=== PATIENT | female | born 1965 | race Caucasian/White ===

== ENCOUNTER 2018-07-27 22:28 | Inpatient (IN) | payer MEDICARE, OTHER ==
[2018-07-28] MEDS ORDERED: ONDANSETRON 4 MG INJ IV
[2018-07-28] MEDS ORDERED: NACL 0.9% 3 ML SYG IV
[2018-07-28] MEDS ORDERED: GLUCOSE GEL 15 GRAM TUBE BUCCAL (00:30)
[2018-07-28] MEDS ORDERED: GLUCAGON 1 MG INJ IM (00:30)
[2018-07-28] MEDS ORDERED: GLUCOSE GEL 15 GRAM TUBE PO ×2 (00:30)
[2018-07-28] MEDS ORDERED: DEXTROSE 50% 50 ML SYRINGE IV ×2 (00:30)
[2018-07-28] MEDS: ACETAMINOPHEN 325 MG TAB PO (01:08)
[2018-07-28] MEDS: SOD CHLORIDE 0.9% 1,000 ML IV ×3 (01:08→19:41)
[2018-07-28] MEDS: ACCU-CHEK XX (02:00)
[2018-07-28] MEDS: INSULIN ASPART [NOVOLOG] 3 ML PEN SC ×6 (02:05→20:53)
[2018-07-28 06:02] LABS: ADD MAN DIFF? NO
[2018-07-28 06:06] LABS: BASOPHILS % 0.3 % (0.0-2.0); EOSINOPHILS # 0.6 10^3/ul (0.0-0.5); EOSINOPHILS % 6.3 % (0.0-7.0); HEMATOCRIT 38.8 % (37.0-47.0); HEMOGLOBIN 12.4 g/dl (12.0-16.0); LYMPHOCYTES # 1.3 10^3/ul (0.8-2.9); LYMPHOCYTES % 13.8 % (15.0-51.0); MEAN CORPUSCULAR HEMOGLOBIN 27.6 pg (29.0-33.0); MEAN CORPUSCULAR VOLUME 86.4 fl (82.0-101.0); MEAN PLATELET VOLUME 12.7 fl (7.4-10.4); MONOCYTE # 0.7 10^3/ul (0.3-0.9); MONOCYTES % 7.6 % (0.0-11.0); NEUTROPHIL # 6.7 10^3/ul (1.6-7.5); NEUTROPHILS % 71.3 % (39.0-77.0); PLATELET COUNT 178 10^3/UL (140-415); RED BLOOD COUNT 4.49 10^6/ul (4.20-5.40); RED CELL DISTRIBUTION WIDTH 12.1 % (11.5-14.5)
[2018-07-28 06:06] LABS: WHITE BLOOD COUNT 9.4 10^3/ul (4.8-10.8)
[2018-07-28 06:29] LABS: ALANINE AMINOTRANSFERASE 187 IU/L (13-69); ALBUMIN 3.7 g/dl (3.3-4.9); ALBUMIN/GLOBULIN RATIO 1.37; ALKALINE PHOSPHATASE 126 IU/L (42-121); ANION GAP 10 (5-13); ASPARTATE AMINO TRANSFERASE 197 IU/L (15-46); BILIRUBIN,INDIRECT 0.3 mg/dl (0-1.1); BILIRUBIN,TOTAL 0.3 mg/dl (0.2-1.3); BLOOD UREA NITROGEN 9 mg/dl (7-20); CALCIUM 8.8 mg/dl (8.4-10.2); CARBON DIOXIDE 27 mmol/L (21-31); CHLORIDE 101 mmol/L (97-110); CREATININE 0.55 mg/dl (0.44-1.00); Estimated GFR > 60 mL/min (>60); GLUCOSE 211 mg/dl (70-220); MAGNESIUM 1.9 mg/dl (1.7-2.5); POTASSIUM 3.9 mmol/L (3.5-5.1); SODIUM 138 mmol/L (135-144); TOTAL PROTEIN 6.4 g/dl (6.1-8.1)
[2018-07-28 06:34] LABS: LACTIC ACID 1.7 mmol/L (0.5-2.0)
[2018-07-28 06:35] LABS: ADD UMIC NO; UR ASCORBIC ACID NEGATIVE (NEGATIVE); UR BILIRUBIN (Dip) NEGATIVE (NEGATIVE); UR BLOOD (Dip) NEGATIVE (NEGATIVE); UR CLARITY CLEAR (CLEAR); UR COLOR YELLOW (YELLOW); UR GLUCOSE (Dip) 3+ mg/dL (NEGATIVE); UR KETONES (Dip) 1+ mg/dL (NEGATIVE); UR LEUKOCYTE ESTERASE (Dip) NEGATIVE Leu/ul (NEGATIVE); UR NITRITE (Dip) NEGATIVE (NEGATIVE); UR TOTAL PROTEIN (Dip) NEGATIVE (NEGATIVE); UR UROBILINOGEN (Dip) NEGATIVE (NEGATIVE)
[2018-07-28] MEDS: metFORMIN 500 MG TAB PO ×2 (08:37→18:05)
[2018-07-28] MEDS: LOSARTAN 50 MG TAB PO (09:00)
[2018-07-28] MEDS: HEPARIN 5,000 UNIT/1 ML VIAL SC ×2 (13:13→20:54)
[2018-07-28] MEDS ORDERED: ALBUTEROL HFA 8 GM INHALER INH (14:30)
[2018-07-28] MEDS: AZITHROMYCIN 250 MG TAB PO (15:19)
[2018-07-28] MEDS: OSELTAMIVIR 75 MG CAP PO ×2 (15:20→20:55)
[2018-07-28] MEDS ORDERED: INSULIN LISPRO 100 UNIT/ML VIAL SC (17:35)
[2018-07-28] MEDS: INSULIN GLARGINE [LANTus] (100 UNITS/ML) SYG SC (20:52)
[2018-07-28] MEDS: ATORVASTATIN 40 MG TAB PO (20:55)
[2018-07-28] MEDS: GUAIFENESIN/DM 5ML CUP PO (20:55)
[2018-07-29] MEDS: ACCU-CHEK XX (01:42)
[2018-07-29 05:06] LABS: ADD MAN DIFF? NO; HAAIG REFLEX REFLEX FILED
[2018-07-29 05:10] LABS: ABNORMAL IP MESSAGE 1; BASOPHILS % 0.3 % (0.0-2.0); EOSINOPHILS # 1.2 10^3/ul (0.0-0.5); EOSINOPHILS % 18.2 % (0.0-7.0); HEMATOCRIT 38.2 % (37.0-47.0); LYMPHOCYTES # 1.9 10^3/ul (0.8-2.9); LYMPHOCYTES % 28.7 % (15.0-51.0); MEAN CORPUSCULAR HEMOGLOBIN 27.3 pg (29.0-33.0); MEAN CORPUSCULAR HGB CONC 31.4 g/dl (32.0-37.0); MEAN PLATELET VOLUME 13.7 fl (7.4-10.4); MONOCYTE # 0.6 10^3/ul (0.3-0.9); MONOCYTES % 9.2 % (0.0-11.0); NEUTROPHIL # 2.8 10^3/ul (1.6-7.5); NEUTROPHILS % 42.7 % (39.0-77.0); PLATELET COUNT 141 10^3/UL (140-415); RED BLOOD COUNT 4.39 10^6/ul (4.20-5.40); RED CELL DISTRIBUTION WIDTH 12.3 % (11.5-14.5)
[2018-07-29 05:10] LABS: WHITE BLOOD COUNT 6.4 10^3/ul (4.8-10.8)
[2018-07-29 05:42] LABS: ALANINE AMINOTRANSFERASE 117 IU/L (13-69); ALBUMIN 3.7 g/dl (3.3-4.9); ALBUMIN/GLOBULIN RATIO 1.37; ALKALINE PHOSPHATASE 120 IU/L (42-121); ANION GAP 9 (5-13); ASPARTATE AMINO TRANSFERASE 55 IU/L (15-46); BILIRUBIN,INDIRECT 0.2 mg/dl (0-1.1); BILIRUBIN,TOTAL 0.2 mg/dl (0.2-1.3); BLOOD UREA NITROGEN 13 mg/dl (7-20); CALCIUM 9.2 mg/dl (8.4-10.2); CARBON DIOXIDE 26 mmol/L (21-31); CHLORIDE 103 mmol/L (97-110); CREATININE 0.55 mg/dl (0.44-1.00); Estimated GFR > 60 mL/min (>60); GLUCOSE 268 mg/dl (70-220); POTASSIUM 4.2 mmol/L (3.5-5.1); SODIUM 138 mmol/L (135-144); TOTAL PROTEIN 6.4 g/dl (6.1-8.1)
[2018-07-29 05:48] LABS: POSITIVE DIFF @See below
[2018-07-29] MEDS: GUAIFENESIN/DM 5ML CUP PO (05:48)
[2018-07-29 05:53] LABS: INR 0.91; PROTIME 12.4 Sec (11.9-14.9)
[2018-07-29 06:07] LABS: HEPATITIS B SURFACE ANTIGEN NEGATIVE (NEGATIVE)
[2018-07-29 06:25] LABS: HEPATITIS B CORE ANTIBODY NEGATIVE (NEGATIVE); HEPATITIS C VIRAL ANTIBODY NEGATIVE (NEGATIVE)
[2018-07-29] MEDS: OSELTAMIVIR 75 MG CAP PO (08:03)
[2018-07-29] MEDS: AZITHROMYCIN 250 MG TAB PO (08:03)
[2018-07-29] MEDS: metFORMIN 500 MG TAB PO ×2 (08:04→17:33)
[2018-07-29] MEDS: INSULIN ASPART [NOVOLOG] 3 ML PEN SC ×6 (08:07→17:35)
[2018-07-29] MEDS: LOSARTAN 50 MG TAB PO (08:08)
[2018-07-29] MEDS: HEPARIN 5,000 UNIT/1 ML VIAL SC (08:08)
[2018-07-29] MEDS: QUETIAPINE 25 MG TAB PO (10:06)
[2018-07-29] MEDS ORDERED: LORAZEPAM 0.5 MG TAB PO (11:30)
[2018-07-29] MEDS: LORAZEPAM 1 MG TAB PO (11:43)
[2018-07-29] MEDS ORDERED: INSULIN GLARGINE [LANTus] (100 UNITS/ML) SYG SC (20:00)
== END 2018-07-29 18:20 | disposition home or self-care (01) | DRG 206 ==
LOC: PP2 22:28
PROVIDERS: Internal Medicine
DX: J98.9 Respiratory disorder, unspecified (principal); A49.9 Bacterial infection, unspecified; E11.9 Type 2 diabetes mellitus without complications; Z79.4 Long term (current) use of insulin; E88.81 Metabolic syndrome and other insulin resistance; F29 Unspecified psychosis not due to a substance or known physiological condition
CPT/HCPCS: 76705; 80053; 81003; 82962; 83036; 83605; 83735; 84100; 84443; 84703; 85025; 85610; 86704; 86709; 86803; 87086; 87340; 87400; 90686